=== PATIENT | male | born 1950 ===

== ENCOUNTER 2023-01-30 10:11 | Emergency (ER) | payer MEDICARE, BC ==
[~2023-01-30] VITALS: Ht 170.2 cm; Wt 93.0 kg
[2023-01-30] VITALS (22 sets, daily range): BP systolic 119–174; BP diastolic 76–93
[2023-01-30 10:40] LABS: BASO% 0.6 % (0-3); EOS% 2.3 % (0-8); HEMATOCRIT 41.2 % (39.0-50.0); HEMOGLOBIN 13.2 g/dl (14.0-18.0); IMMATURE GRANULOCYTES 0.3 % (0.0-5.0); LYMPH% 35.5 % (15-41); MEAN CELL VOLUME 90.7 fL CALC (80.0-100.0); MEAN CORPUSCULAR HGB 29.1 pG CALC (26.0-32.0); MONO% 10.6 % (2-13); NEUT# 3.51 thou/uL (1.82-7.42); NEUT% 50.7 % (42-76); RED BLOOD COUNT 4.54 mill/uL (4.70-6.10); RED CELL DISTRI WIDTH 12.5 % (11.5-15.5)
[2023-01-30 10:47] LABS: ALBUMIN 4.6 g/dL (3.2-5.0); ALKALINE PHOSPHATASE 49 u/l (38-126); ANION GAP 13 (6-22 (CALC)); BILIRUBIN, TOTAL 0.8 mg/dL (0.2-1.3); BUN 26 mg/dL (8-23); BUN/CREATININE RATIO 21 (12-20 (CALC)); CARBON DIOXIDE 26 mmol/l (22-30); CHLORIDE 101 mmol/l (95-108); CREATININE 1.2 mg/dL (0.7-1.3); GFR FOR AFR.AMER. > 60 ML/MIN (>=60 (CALC)); GFR OTHER RACES 60 ML/MIN (>=60 (CALC)); SGOT/AST 24 u/l (19-48); SODIUM 136 mmol/l (137-146); TOTAL PROTEIN 7.3 g/dL (6.3-8.2)
[2023-01-30 11:17] LABS: TSH, 3RD GENERATION 2.36 uIU/mL (0.47 - 4.68)
[2023-01-30] MEDS ORDERED: HYDROCHLOROT12.5 M1 PO (12:04)
[2023-01-30] MEDS ORDERED: ZYLOPRIM100 MG PO (12:05)
[2023-01-30] MEDS ORDERED: PRILOSEC20 MG/CAP PO (12:05)
[2023-01-30] MEDS ORDERED: LISINOPRIL20 M1 PO (12:05)
== END 2023-01-30 15:36 | disposition home or self-care (01) ==
LOC: ED 10:11
PROVIDERS: Family Medicine
DX: I20.8 Other forms of angina pectoris (principal); I10 Essential (primary) hypertension; E11.9 Type 2 diabetes mellitus without complications; E78.5 Hyperlipidemia, unspecified; E66.9 Obesity, unspecified; Z87.891 Personal history of nicotine dependence